=== PATIENT | female | born 1945 | race African-American/Black ===

== ENCOUNTER 2023-02-17 10:31 | Emergency (ER) | payer MEDICARE, SELFPAY ==
--- NOTE | ~2023-02-17 | XR_ITS ---
Left Hand Technique: PA, oblique, and lateral views were obtained. Clinical History: Thumb pain Findings: No acute fracture or dislocation is seen. Osseous alignment is anatomic. There is mild dege nerative change at the first CMC joint. Soft tissues are unremarkable. Impression: . No fracture or dislocation. 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 Reviewed, dictated and finalized at location . Impression: . No fracture or dislocation. 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
[2023-02-17 10:47] VITALS: BP 131/82; PULSE 85; RESP 16; TEMP 36.2; O2SAT 97
[2023-02-17 10:55] VITALS: BP 131/82; PULSE 85; RESP 16; TEMP 36.2; O2SAT 97
--- NOTE | 2023-02-17 10:56 | ED.UPPEXIN ---
HPI - Extremity Injury (Upper) General Chief Complaint: Extremity Injury, Upper Stated Complaint: hand pain Time Seen by Provider: 02/17/23 10:56 Source: patient, RN notes reviewed and old records reviewed Mode of arrival: ambulatory Limitations: no limitations History of Present Illness HPI narrative: 77-year-old female presents to the [facility] with complaints of left hand pain since Monday, 5 days. Swelling noted to the base of the left 1st finger, 1st metacarpal. Patient states a couple of days ago she was pulling out a cord from the vacuum when she had her hand into a door. No snuffbox tenderness. Onset (ago): day(s) (5) Related Data Home Medications Medication Instructions Recorded Confirmed Zyrtec 02/17/23 apixaban 5 mg tablet (Eliquis) mg 02/17/23 atorvastatin 20 mg tablet mg 02/17/23 carvedilol 25 mg tablet mg 02/17/23 cholecalciferol (vitamin D3) 02/17/23 diclofenac sodium 1 % topical gel topical 02/17/23 empagliflozin 10 mg tablet mg 02/17/23 (Jardiance) furosemide 20 mg tablet mg 02/17/23 sacubitril 49 mg-valsartan 51 mg tablet 02/17/23 tablet (Entresto) sertraline 50 mg tablet mg 02/17/23 Allergies Allergy/AdvReac Type Severity Reaction Status Date / Time No Known Allergies Allergy Verified 02/17/23 10:35 Review of Systems Review of Systems: All systems reviewed & are unremarkable except as noted in HPI and below Constitutional: Constitutional: Reports no additional constitutional complaints Eyes: Eyes: Reports no additional eye complaints ENT: Reports system reviewed and no additional complaints, except as documented Cardiovascular: Cardiovascular: Reports no additional cardiovascular complaints, Denies chest pain and Denies dyspnea Respiratory: Respiratory: Reports no additional respiratory complaints, Denies chest congestion, Denies cough and Denies dyspnea Gastrointestinal: Gastrointestinal: Reports no additional gastrointestinal complaints, Denies abdominal pain, Denies nausea and Denies vomiting Musculoskeletal: Musculoskeletal: Reports as per HPI and Reports other (left hand pain) Integumentary/Breasts: Skin/Breast: Reports system reviewed and no additional complaints, except as docu Neurologic: Reports system reviewed and no additional complaints, except as documented Psychiatric: Psychiatric: Reports no additional psychiatric complaints Allergic/Immunologic: Allergic/Immunologic: Reports no additional allergic/immunologic complaints PMFSH Comments At the time of my signature, I reviewed and agree with the nursing past medical, surgical, social, and family history. There is no relevant family history pertinent to the patient complaint. Exam Const: General: cooperative, healthy appearing, comfortable, no acute distress, well developed, alert and well nourished Nutritional Appearance: well nourished Orientation/consciousness: patient oriented x3 Limitations: no limitations HENMT: Head: normal to inspection Ears: hearing grossly normal bilaterally and external ears normal Face/Nose/Sinus: Normal external nose present, Normal nares present, Normal nasal mucous membranes and turbinates present and normal facial exam Face and sinus: normal facial exam Eyes: General: appearance normal, both eyes and all related structures Alignment and Position: alignment normal Periorbital: periorbital findings normal Pupils: Equal, round and reactive pupils present EOM: EOMs intact bilaterally Neck: Neck: normal visual inspection, full ROM, no lymphadenopathy and no meningeal signs Chest: Chest palpation & inspection: normal inspection of the chest Resp: Effort & Inspection: normal respiratory effort and able to speak in complete sentences Auscultation: clear to auscultation bilaterally, no crackles, no rales, no rhonchi and no wheezes Cardio: Rate: regular rate Rhythm: regular rhythm Back/Spine/Pelvis: Cervical Spine: cervical ROM normal Thoracic/Lumbar Spine: No thor
== END 2023-02-17 11:38 | disposition home or self-care (01) ==
PROVIDERS: Emergency Provider Nurse Practitioner
DX: S60.222A Contusion of left hand, initial encounter (principal); Z79.01 Long term (current) use of anticoagulants; W22.8XXA Striking against or struck by other objects, initial encounter
CPT/HCPCS: 73130; 99213; G0463